=== PATIENT | male | born 2000 | race Caucasian/White ===

== ENCOUNTER 2024-06-03 23:40 | Emergency (ER) | payer SELFPAY ==
[~2024-06-03] VITALS: Ht 182.9 cm; Wt 84.0 kg
[2024-06-03 23:53] VITALS: BP 129/79; PULSE 102; RESP 20; TEMP 98.4; O2SAT 100
== END 2024-06-04 | disposition left against medical advice (07) ==
LOC: ER 23:40
DX: M25.519 Pain in unspecified shoulder (principal); Z53.21 Procedure and treatment not carried out due to patient leaving prior to being seen by health care provider